=== PATIENT | female | born 1970 | race Caucasian/White ===

== ENCOUNTER 2016-12-17 09:25 | Emergency (ER) | payer MEDICAID ==
[~2016-12-17] VITALS: Ht 142.2 cm; Wt 68.0 kg
[~2016-12-17 09:25] MED LIST: [UNRECOGNIZED DRUG - REMARK]
[2016-12-17 09:51] VITALS: BP 120/60
--- NOTE | 2016-12-17 09:57 | NUR ---
patient ambulated to bed #6 with nurse
--- NOTE | 2016-12-17 09:58 | NUR ---
46/F BIB FAMILY C/O LEFT BREAST PAIN 5/10 X 2 DAYS WITH N/V ON SATURDAY; DENIES ANY DISCHARGE. HX; LEFT BREAST CA & SURGERY X 5 YEARS. RX; CHEMO. AAOX4 WITH EVEN AND STEADY GAIT; LUNGS CLEAR BL; HR EVEN AND REGULAR; PT DENIES ANY FEVER, CP, SOB, OR COUGH AT THIS TIME; PATIENT STATES PAIN OF 5/10 AT THIS TIME; PATIENT POSITIONED FOR COMFORT; HOB ELEVATED; BEDRAILS UP X2; BED DOWN. ER MD MADE AWARE OF PT STATUS.
--- NOTE | 2016-12-17 10:07 | NUR ---
Dr. Canas evaluating patient at bedside.
--- NOTE | 2016-12-17 11:01 | NUR ---
Patient appears to be resting comfortably in bed. Vital Signs within normal limits. Respirations even and unlabored.WILL CONTINUE TO MONITOR.
--- NOTE | 2016-12-17 11:01 | NUR ---
Meek schmid in [facility] - 12/17/16 at 1131 by MED1 Patient ambulated to bed 8 with family. RN evaluating patient at bedside.WILL CONTINUE TO MONITOR.
--- NOTE | 2016-12-17 11:31 | NUR ---
US AT BEDSIDE.
[2016-12-17 13:02] VITALS: BP 116/81
--- NOTE | 2016-12-17 13:02 | NUR ---
Patient discharged with v/s stable. Written and verbal after care instructions given and explained. Patient verbalized understanding. Ambulatory with steady gait. All questions addressed prior to discharge. Advised to follow up with PMD.
== END 2016-12-17 13:02 | disposition home or self-care (01) ==
LOC: MED 09:25
DX: N64.4 Mastodynia (principal); N63 Unspecified lump in breast; Z85.3 Personal history of malignant neoplasm of breast
CPT/HCPCS: 76641; 99284; Q0092

== ENCOUNTER 2017-04-23 09:29 | Emergency (ER) | payer MEDICAID, OTHER ==
[~2017-04-23] VITALS: Ht 149.9 cm; Wt 69.5 kg
[2017-04-23 09:34] VITALS: BP 114/69
--- NOTE | 2017-04-23 12:15 | NUR ---
PT TAKEN TO OVERFLOW 3.
[2017-04-23] MEDS ORDERED: ACETAMINOPHEN EXTRA STRENGTH 500 MG TAB PO ONE (12:30)
[2017-04-23] MEDS ORDERED: METOCLOPRAMIDE 10 MG/2 ML INJ VIAL IM ONE (12:30)
[2017-04-23] MEDS ORDERED: METOCLOPRAMIDE 10 MG/2 ML INJ VIAL ONE (12:37)
[2017-04-23] MEDS ORDERED: ACETAMINOPHEN EXTRA STRENGTH 500 MG TAB ONE (12:38)
--- NOTE | 2017-04-23 13:15 | NUR ---
PATIENT IS A 46 YO FEMALE BIB SELF FOR HEADACHE AWAKE AND ALERT ABLE TO AMBULATE.
--- NOTE | 2017-04-23 13:21 | NUR ---
PATIENT ELOPED FROM FACILITY NO DISCHARGE PAPERWORK GIVEN.
[2017-04-23 13:24] VITALS: BP 142/65
== END 2017-04-23 13:21 | disposition left against medical advice (07) ==
LOC: MED 09:29
DX: R51 Headache (principal); H53.149 Visual discomfort, unspecified; R11.0 Nausea; Z90.49 Acquired absence of other specified parts of digestive tract; Z85.3 Personal history of malignant neoplasm of breast
CPT/HCPCS: 81002; 81025; 96372; 99283; J2765